=== PATIENT | male | born 1990 ===

== ENCOUNTER 2024-07-09 05:50 | Day surgery (SDC) | payer OTHER ==
[2024-07-06 10:27] LABS: URINE APPEARANCE Clear; URINE BILIRRUBIN Negative (NEGATIVE); URINE BLOOD Negative; URINE COLOR Yellow; URINE GLUCOSE Negative (NEGATIVE); URINE KETONE Negative (NEGATIVE); URINE LEUKOCYTE Negative; URINE NITRATE Negative; URINE PROTEIN Negative (NEGATIVE); URINE UROBILINOGEN 0.2 E.U./dl
[2024-07-06 10:31] LABS: URINE RBC 10.8 uL (0.0-20.8)
[2024-07-06 10:35] LABS: HEMATOCRIT 46.8 % (39.0-48.0); MEAN CELL VOLUME 92.8 fL (80.0-100.00); MEAN CORPUSCULAR HEMOGLOBIN 31.7 pg (27.00-32.0); MEAN CORPUSCULAR HGB CONC 34.1 g/dl (32.0-36.0); PLATELET COUNT 184 K/uL (150-450); RED BLOOD COUNT 5.04 M/uL (4.00-6.00); RED CELL DISTRIBUTION WIDTH 13.4 % (11.5-14.5); URINE BACTERIA 3.6 uL (0.0-1933); URINE EPITHELIAL CELLS 1.1 uL (0.0-38.8); URINE WBC 1.4 uL (0.0-23.2)
[2024-07-06 10:54] LABS: INR 1.13; PARTIAL THROMBOPLASTIN TIME 27.6 SECONDS (22.0-34.0); PROTHROMBIN TIME 12.2 SECONDS (9.0-11.5)
[2024-07-06 11:08] LABS: CALCIUM 9.5 mg/dL (8.5-10.1); GFR 86.05
[2024-07-09] MEDS ORDERED: CEFAZOLIN SODIUM 1,000 MG VIAL ONE (07:06)
[2024-07-09] MEDS ORDERED: BUPIVACAINE HCL/PF 0.25% 30ML VIAL InF ONE (07:45)
[2024-07-09] MEDS ORDERED: KETOROLAC TROMETHAMINE 30 MG VIAL ONE (08:03)
[2024-07-09] MEDS ORDERED: MIRALAX17 GM PO (10:38)
[2024-07-09] MEDS ORDERED: KETO10TA2 PO (10:38)
[2024-07-09] MEDS ORDERED: TRAMADOL HCL50 MG PO (10:38)
[2024-07-09] MEDS ORDERED: TYLENOL ARTHRI650 MG PO (10:38)
[2024-07-09] MEDS ORDERED: MORPHINE SULFATE 4 MG/ML VIAL IV ONE (10:40)
== END 2024-07-09 15:55 | disposition home or self-care (01) ==
LOC: CIR.AMB 05:50
PROVIDERS: ATTEND Surgery
DX: K40.20 Bilateral inguinal hernia, without obstruction or gangrene, not specified as recurrent (principal); K42.0 Umbilical hernia with obstruction, without gangrene